=== PATIENT | male | born 1990 | race African-American/Black ===

== ENCOUNTER 2021-10-30 03:57 | Emergency (ER) | payer OTHER ==
[~2021-10-30] VITALS: Ht 177.8 cm; Wt 81.6 kg
[2021-10-30] MEDS ORDERED: ONDANSETRON ODT 4 MG TAB.RAPDIS ONE (04:10)
[2021-10-30] MEDS ORDERED: TDAP DIPH,PERTUSS,TET VAC/PF 0.5 ML DISP.SYRIN IM ONE ×2 (04:11→04:15)
[2021-10-30] MEDS ORDERED: OXYCODONE/APAP 5-325 MG TABLET ONE (04:11)
[2021-10-30] MEDS ORDERED: AMOXICILLIN-CLAVUL 875-125MG TABLET ONE (04:11)
--- NOTE | 2021-10-30 04:12 | NUR ---
Dr cadet at bedside, MSE in progress.
[2021-10-30] MEDS ORDERED: AMOXICILLIN-CLAVUL 875-125MG TABLET PO ONE (04:15)
[2021-10-30] MEDS ORDERED: ONDANSETRON ODT 4 MG TAB.RAPDIS SL ONE (04:15)
[2021-10-30] MEDS ORDERED: AMOX-430 PO (04:15)
[2021-10-30] MEDS ORDERED: OXYCODONE/APAP 5-325 MG TABLET PO ONE (04:15)
--- NOTE | 2021-10-30 04:15 | NUR ---
Wound to left lower extremity cleaned with betadine and covered with bandaid.
--- NOTE | 2021-10-30 04:51 | NUR ---
Patient discharged to [employer] in stable condition. Written and verbal after care instructions given to [employer]/patient, verbalizes understanding of instructions. Stressed follow up or return to ER for worsening s/s.
[2021-10-30 04:58] VITALS: BP 138/80
== END 2021-10-30 04:59 ==
LOC: ER 04:16
DX: S81.852A Open bite, left lower leg, initial encounter (principal); S80.812A Abrasion, left lower leg, initial encounter; W54.0XXA Bitten by dog, initial encounter; Y35.893A Legal intervention involving other specified means, suspect injured, initial encounter; Y92.89 Other specified places as the place of occurrence of the external cause
CPT/HCPCS: 90715; A4663; Q0162